=== PATIENT | male | born 1970 | race Caucasian/White ===

== ENCOUNTER 2018-12-23 16:12 | Emergency (ER) | payer BC, OTHER ==
[2018-12-23] MEDS ORDERED: Piperacillin/Tazobactam 4.5 GM VIAL ONE (19:59)
[2018-12-23] MEDS ORDERED: Ibuprofen 800 MG TAB ONE (21:12)
== END 2018-12-23 22:48 ==
LOC: ERS 16:12
DX: A41.9 Sepsis, unspecified organism (principal); J18.9 Pneumonia, unspecified organism; R59.0 Localized enlarged lymph nodes; Z87.891 Personal history of nicotine dependence
CPT/HCPCS: 96365; J2543